=== PATIENT | male | born 1985 | race Caucasian/White ===

== ENCOUNTER 2019-06-12 19:17 | Inpatient (IN) ==
--- NOTE | 2019-06-12 21:35 | Emergency Department Note ---
Fever HPI - General Chief Complaint: Fever Stated Complaint: fever Time Seen by Provider: 06/12/19 19:27 Source: patient Mode of arrival: ambulatory Limitations: no limitations - History of Present Illness HPI Narrative: 34-year-old male presents with fever, tachycardia, and some generalized mild abdominal pain. States he has peritonitis. Has a peritoneal dialysis catheter for kidney failure and is supposed to get a kidney transplant soon. States he only has 1 kidney at this time. He is a Dr. Wick patient. Dr. Wick did call ahead. He has been getting vancomycin via his peritoneal dialysis and his last dose is tomorrow. States he was doing better until today when he started running a fever again. Also has some mild abdominal discomfort. States this is how it started originally and with any 8 hours he has been for. States he is noticed a fever on 3 occasions over the last 8 hours. Does have some nausea. No vomiting or diarrhea. Dr. Wick did call and give report to Dr. Donahue and passed on some lab orders as well as he would like us to get a CT of the abdomen and pelvis without contrast - Related Data Home Medications Medication Instructions Recorded Confirmed Allopurinol [Zyloprim] 300 mg PO DAILY 06/12/19 06/12/19 Cholecalciferol (Vitd3)/Vit K2 2,000 units PO DAILY 06/12/19 06/12/19 [Dosoquin Tablet] Lisinopril [Zestril] 20 mg PO DAILY 06/12/19 06/12/19 Magnesium Oxide [Mag-Oxide 400 mg PO DAILY 06/12/19 06/12/19 Magnesium] Simvastatin [Zocor] 10 mg PO HS 06/12/19 06/12/19 Allergies Allergy/AdvReac Type Severity Reaction Status Date / Time No Known Drug Allergies Allergy Unverified 06/12/19 19:22 Review of Systems All systems ED: reviewed and negative except as stated. Fever PMH - Past Medical History Medical history: Reports: renal disease, other (Recent peritonitis with vancomycin therapy) Surgical history ED: Reports: other (Peritoneal dialysis catheter) - Social History smoking status: Never smoker Alcohol use: Reports: None Drug use: Reports: none Physical Exam Limitations: no limitations General appearance: alert Head: atraumatic, normocephalic, normal inspection Eye: Present: normal appearance. Absent: conjunctival injection ENT: Present: mucous membranes moist Neck: Present: normal inspection, trachea midline. Absent: tenderness, lymphadenopathy Chest: Present: symmetric chest wall rise Respiratory: Present: normal lung sounds bilaterally. Absent: respiratory d istress, rales/crackles, wheezes, accessory muscle use Cardiovascular: Present: tachycardia, normal heart sounds Abdominal: Present: soft, normal bowel sounds, other (Peritoneal dialysis catheter in place and draining). Absent: distention, tenderness, guarding, rigidity, mass Extremities: Present: normal inspection. Absent: pedal edema Neurological: Present: alert, oriented X3 Psychiatric: Present: normal affect, normal mood Skin: Present: warm, dry, intact, other (Pale) Course Course Narrative: At 2150, care turned over to Dr. Donahue due to shift change. Dr. Donahue to assume care Vital Signs Temperature 98.5 F 06/12/19 19:18 Pulse Rate 125 H 06/12/19 19:18 Respiratory Rate 20 06/12/19 19:18 Blood Pressure 125/82 06/12/19 19:18 Pulse Oximetry (%) 98 06/12/19 19:18 Temperature 98.6 F 06/15/19 10:53 Pulse Rate 65 06/15/19 10:53 Respiratory Rate 16 06/15/19 10:53 Blood Pressure 121/81 06/15/19 10:53 Pulse Oximetry (%) 98 06/15/19 10:53 Fever - Lab Data Result diagrams: 06/15/19 05:53 06/15/19 05:53 Lab Results 06/12/19 06/12/19 06/12/19 Range/Units 20:46 20:46 20:46 WBC 3.8 L (4.50-11.00) K/mcL RBC 3.70 L (4.63-6.08) M/mcL Hgb 11.9 L (13.7-17.5) g/dL Hct 33.7 L (40.1-51.0) % MCV 91.1 (80.0-100.0) fL MCH 32.2 (26.0-34.0) pg MCHC 35.3 (31.0-36.0) g/dL RDW 12.8 (11.5-14.5) % Plt Count 179 (140-440) K/mcL MPV 10.6 H (7.4-10.4) fL Total Counted 100 Seg Neutrophils % 78 (38-78) % Band Neutrophils % Not Reportable Lymphocytes % 16 (15-49) % Monocytes % (Manual) 4 (1-12) % Eosinophils % (Manual) 2 (0-7) % Platelet Estimate Normal (NORMAL) RBC Morphology Normal (NORMAL) VBG Lactic Acid 0.9 (0.5-2.0) mmol/L Sodium 127 L (133-145) mmol/L Potassium 4.1 (3.3-5.1) mmol/L Chloride 90 L (96-108) mmol/L Carbon Dioxide 22 (22-30) mmol/L Anion Gap 15.0 (8-16) BUN 84 H (6-20) mg/dl Creatinine 5.3 H* (0.7-1.2) mg/dl GFR Calculation 13 Glucose 113 H (70-105) mg/dL Calcium 10.0 (8.6-10.4) mg/dl Total Bilirubin 0.2 (0.0-1.0) mg/dL AST 15 (0-37) U/l ALT 32 (0-40) U/l Alkaline Phosphatase 63 (39-117) U/L Total Protein 6.5 (5.9-8.4) gm/dL Albumin 3.9 (3.2-5.2) gm/dL Globulin 2.6 (2.2-3.7) gm/dL Albumin/Globulin Ratio 1.5 (1.0-2.3) Peritoneal Source Peritoneal Color Peritoneal Appearance Peritoneal RBC /cumm Periton Tot Cells Ct Periton Nuc Cells /cumm Periton Neutrophils % Periton Lymphocytes % Peritoneal Monocytes % Peritoneal Eosinophils % Peritoneal Basophils % Periton Mesothelial % Periton Macrophages % Peritoneal Plasma Cell Peritoneal Other Cells Peritoneal Diff Commnt 06/12/19 Range/Units 21:08 WBC (4.50-11.00) K/mcL RBC (4.63-6.08) M/mcL Hgb (13.7-17.5) g/dL Hct (40.1-51.0) % MCV (80.0-100.0) fL MCH (26.0-34.0) pg MCHC (31.0-36.0) g/dL RDW (11.5-14.5) % Plt Count (140-440) K/mcL MPV (7.4-10.4) fL Total Counted Seg Neutrophils % (38-78) % Band Neutrophils % Lymphocytes % (15-49) % Monocytes % (Manual) (1-12) % Eosinophils % (Manual) (0-7) % Platelet Estimate (NORMAL) RBC Morphology (NORMAL) VBG Lactic Acid (0.5-2.0) mmol/L Sodium (133-145) mmol/L Potassium (3.3-5.1) mmol/L Chloride (96-108) mmol/L Carbon Dioxide (22-30) mmol/L Anion Gap (8-16) BUN (6-20) mg/dl Creatinine (0.7-1.2) mg/dl GFR Calculation Glucose (70-105) mg/dL Calcium (8.6-10.4) mg/dl Total Bilirubin (0.0-1.0) mg/dL AST (0-37) U/l ALT (0-40) U/l Alkaline Phosphatase (39-117) U/L Total Protein (5.9-8.4) gm/dL Albumin (3.2-5.2) gm/dL Globulin (2.2-3.7) gm/dL Albumin/Globulin Ratio (1.0-2.3) Peritoneal Source Peritoneal Peritoneal Color Colorless Peritoneal Appearance Clear Peritoneal RBC < 62836 /cumm Periton Tot Cells Ct 100 Periton Nuc Cells 95 /cumm Periton Neutrophils 2 % Periton Lymphocytes 35 % Peritoneal Monocytes 42 % Peritoneal Eosinophils 4 % Peritoneal Basophils 2 % Periton Mesothelial 6 % Periton Macrophages 9 % Peritoneal Plasma Cell Not Reportable Peritoneal Other Cells Not Reportable Peritoneal Diff Commnt Not Reportable Disposition Pt seen by ONLINE COMMUNICATIONS MANAGER/PA only: No Clinical Impression: Hyponatremia Peritoneal dialysis-associated peritonitis Qualifiers: Encounter type: initial encounter Qualified Code(s): T85.71XA - Infection and inflammatory reaction due to peritoneal dialysis catheter, initial encounter Disposition: Xfer As Inpt ([facility]) Condition: Fair
[2019-06-12 22:06] LABS: Hematocrit 33.7 % (40.1-51.0); Hemoglobin 11.9 g/dL (13.7-17.5); Mean Cell Volume 91.1 fL (80.0-100.0); Mean Corpuscular HGB Conc 35.3 g/dL (31.0-36.0); Mean Platelet Volume 10.6 fL (7.4-10.4); Platelet Count 179 K/mcL (140-440); Red Cell Distribution Width 12.8 % (11.5-14.5); WBC 3.8 K/mcL (4.50-11.00)
[2019-06-12 22:25] LABS: ALT/SGPT 32 U/l (0-40); AST/SGOT 15 U/l (0-37); Albumin 3.9 gm/dL (3.2-5.2); Albumin/Globulin Ratio 1.5 (1.0-2.3); Alkaline Phosphatase 63 U/L (39-117); Bilirubin,Total 0.2 mg/dL (0.0-1.0); Blood Urea Nitrogen 84 mg/dl (6-20); Carbon Dioxide 22 mmol/L (22-30); Globulin 2.6 gm/dL (2.2-3.7); Glucose 113 mg/dL (70-105)
[2019-06-12 22:28] LABS: Chloride 90 mmol/L (96-108); Eosinophils % (Manual) 2 % (0-7); Glomerular Filtration Rate 13; Lymphocytes % 16 % (15-49); Monocytes % (Manual) 4 % (1-12); Platelet Estimate NORMAL (NORMAL); RBC Morphology NORMAL (NORMAL); Segmented Neutrophils % 78 % (38-78)
--- NOTE | 2019-06-12 22:45 | Emergency Department Note ---
General Adult HPI - General Chief complaint: Fever Stated complaint: fever Time Seen by Provider: 06/12/19 19:27 Source: patient Mode of arrival: ambulatory Limitations: no limitations - History of Present Illness HPI Narrative: See history and physical dictated by DEE DEE Paulino. Patient reports that he was, 11 days ago, admitted and treated for peritonitis. He was treated and has been getting vancomycin every 4 days, 2 g. Also ceftaz a dime 1 g every day. These have been placed into his peritoneal dialysis fluid. However, today he developed some fevers and chills around 4 PM. Also some abdominal discomfort. No other source of fever is noted. He has no runny nose, sore throat, dysuria, cough, rash. He has had a little nausea but on. No chest pain. 11 days and 4 days ago he had some diarrhea. 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 He began peritoneal dialysis in January 2019. - Related Data Home Medications Medication Instructions Recorded Confirmed Allopurinol [Zyloprim] 300 mg PO DAILY 06/12/19 06/12/19 Cholecalciferol (Vitd3)/Vit K2 2,000 units PO DAILY 06/12/19 06/12/19 [Dosoquin Tablet] Lisinopril [Zestril] 20 mg PO DAILY 06/12/19 06/12/19 Magnesium Oxide [Mag-Oxide 400 mg PO DAILY 06/12/19 06/12/19 Magnesium] Simvastatin [Zocor] 10 mg PO HS 06/12/19 06/12/19 Allergies Allergy/AdvReac Type Severity Reaction Status Date / Time No Known Drug Allergies Allergy Unverified 06/12/19 19:22 Past Medical History - Past Medical History PMF Narrative: Medical History (Last Updated 06/13/19 @ 07:17 by Sreekanth Donahue DO) Chronic renal failure, stage 5 (Chronic) 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) Peritoneal dialysis-associated peritonitis (Acute) Peritoneal dialysis status (Chronic) Past Surgical History (Last Updated 06/13/19 @ 07:20 by Sreekanth Donahue DO) Status post insertion of dialysis catheter (Acute) Medical history: Reports: renal disease, other (Recent peritonitis with vancomycin therapy) Surgical history ED: Reports: other (Peritoneal dialysis catheter) - Social History smoking status: Never smoker Alcohol use: Reports: None Drug use: Reports: none Physical Exam Limitations: no limitations General appearance: alert, in no apparent distress, nontoxic Head: atraumatic, normocephalic Eye: Present: EOMI ENT: Present: mucous membranes moist Neck: Present: trachea midline. Absent: lymphadenopathy, thyromegaly Chest: Present: symmetric chest wall rise Respiratory: Present: normal lung sounds bilaterally. Absent: respiratory distress, rales/crackles, wheezes Cardiovascular: Present: regular rate, normal rhythm. Absent: systolic murmur, diastolic murmur Abdominal: Present: soft, tenderness (mild subjective, diffuse.). Absent: distention, guarding, rebound, rigidity, organomegaly, mass Extremities: Absent: pedal edema, pretibial edema, calf tenderness Back: Absent: CVA tenderness (R), CVA tenderness (L), spinous process tenderness Neurological: Present: alert, oriented X3 Psychiatric: Present: normal affect, normal mood Skin: Present: warm (feels feverish.), dry Course Vital Signs Temperature 98.5 F 06/12/19 19:18 Pulse Rate 125 H 06/12/19 19:18 Respiratory Rate 20 06/12/19 19:18 Blood Pressure 125/82 06/12/19 19:18 Pulse Oximetry (%) 98 06/12/19 19:18 Temperature 98.5 F 06/13/19 04:01 Pulse Rate 72 06/13/19 04:01 Respiratory Rate 23 H 06/13/19 04:01 Blood Pressure 131/74 06/13/19 04:01 Pulse Oximetry (%) 98 06/13/19 04:01 Medical Decision Making - [facility] Narrative Medical decision making narrative: Fever and abdominal pain in a patient with a peritoneal catheter who is been treated with vancomycin and ceftaz edema for peritonitis. White count is normal to slightly low. He has a sodium of 127. Lactic acid is 0.9. BUN is 84 and creatinine 5.3. Because of fever has given acetaminophen. 11:00 PM - I spoke with Dr. Wick regarding this patient prior to his admission and CT scan, labs, multiple cultures, etc. were obtained. I again spoke with him and we discussed making sure that there were eosinophils sustained and counted, fungal culture and stain; begin fluconazole 200 mg and Cipro 400 mg IV. I spoke with Dr. Stokes, hospitalist, who kindly accepts this patient for general care medical inpatient care. - Lab Data Result diagrams: 06/13/19 05:33 06/13/19 05:33 Lab Results 06/12/19 06/12/19 06/12/19 Range/Units 20:46 20:46 20:46 WBC 3.8 L (4.50-11.00) K/mcL RBC 3.70 L (4.63-6.08) M/mcL Hgb 11.9 L (13.7-17.5) g/dL Hct 33.7 L (40.1-51.0) % MCV 91.1 (80.0-100.0) fL MCH 32.2 (26.0-34.0) pg MCHC 35.3 (31.0-36.0) g/dL RDW 12.8 (11.5-14.5) % Plt Count 179 (140-440) K/mcL MPV 10.6 H (7.4-10.4) fL Total Counted 100 Seg Neutrophils % 78 (38-78) % Band Neutrophils % Not Reportable Lymphocytes % 16 (15-49) % Monocytes % (Manual) 4 (1-12) % Eosinophils % (Manual) 2 (0-7) % Platelet Estimate Normal (NORMAL) RBC Morphology Normal (NORMAL) VBG Lactic Acid 0.9 (0.5-2.0) mmol/L Sodium 127 L (133-145) mmol/L Potassium 4.1 (3.3-5.1) mmol/L Chloride 90 L (96-108) mmol/L Carbon Dioxide 22 (22-30) mmol/L Anion Gap 15.0 (8-16) BUN 84 H (6-20) mg/dl Creatinine 5.3 H* (0.7-1.2) mg/dl GFR Calculation 13 Glucose 113 H (70-105) mg/dL Calcium 10.0 (8.6-10.4) mg/dl Total Bilirubin 0.2 (0.0-1.0) mg/dL AST 15 (0-37) U/l ALT 32 (0-40) U/l Alkaline Phosphatase 63 (39-117) U/L Total Protein 6.5 (5.9-8.4) gm/dL Albumin 3.9 (3.2-5.2) gm/dL Globulin 2.6 (2.2-3.7) gm/dL Albumin/Globulin Ratio 1.5 (1.0-2.3) Peritoneal Source Peritoneal Color Peritoneal Appearance Peritoneal RBC /cumm Periton Tot Cells Ct Periton Nuc Cells /cumm Periton Neutrophils % Periton Lymphocytes % Peritoneal Monocytes % Peritoneal Eosinophils % Peritoneal Basophils % Periton Mesothelial % Periton Macrophages % Peritoneal Plasma Cell Peritoneal Other Cells Peritoneal Diff Commnt 06/12/19 Range/Units 21:08 WBC (4.50-11.00) K/mcL RBC (4.63-6.08) M/mcL Hgb (13.7-17.5) g/dL Hct (40.1-51.0) % MCV (80.0-100.0) fL MCH (26.0-34.0) pg MCHC (31.0-36.0) g/dL RDW (11.5-14.5) % Plt Count (140-440) K/mcL MPV (7.4-10.4) fL Total Counted Seg Neutrophils % (38-78) % Band Neutrophils % Lymphocytes % (15-49) % Monocytes % (Manual) (1-12) % Eosinophils % (Manual) (0-7) % Platelet Estimate (NORMAL) RBC Morphology (NORMAL) VBG Lactic Acid (0.5-2.0) mmol/L Sodium (133-145) mmol/L Potassium (3.3-5.1) mmol/L Chloride (96-108) mmol/L Carbon Dioxide (22-30) mmol/L Anion Gap (8-16) BUN (6-20) mg/dl Creatinine (0.7-1.2) mg/dl GFR Calculation Glucose (70-105) mg/dL Calcium (8.6-10.4) mg/dl Total Bilirubin (0.0-1.0) mg/dL AST (0-37) U/l ALT (0-40) U/l Alkaline Phosphatase (39-117) U/L Total Protein (5.9-8.4) gm/dL Albumin (3.2-5.2) gm/dL Globulin (2.2-3.7) gm/dL Albumin/Globulin Ratio (1.0-2.3) Peritoneal Source Peritoneal Peritoneal Color Colorless Peritoneal Appearance Clear Peritoneal RBC < 76227 /cumm Periton Tot Cells Ct 100 Periton Nuc Cells 95 /cumm Periton Neutrophils 2 % Periton Lymphocytes 35 % Peritoneal Monocytes 42 % Peritoneal Eosinophils 4 % Peritoneal Basophils 2 % Periton Mesothelial 6 % Periton Macrophages 9 % Peritoneal Plasma Cell Not Reportable Peritoneal Other Cells Not Reportable Peritoneal Diff Commnt Not Reportable Disposition Pt seen by MDM DEVELOPER/PA only: No Clinical Impression: Hyponatremia Peritoneal dialysis-associated peritonitis Qualifiers: Encounter type: initial encounter Qualified Code(s): T85.71XA - Infection and inflammatory reaction due to peritoneal dialysis catheter, initial encounter Disposition: Xfer As Inpt ([facility]) Condition: Fair
[2019-06-12] MEDS ORDERED: ACETAMINOPHEN 325 MG TABLET PO ONE (22:55)
[2019-06-12 23:00] LABS: Basophils,Peritoneal Fluid 2 %; Eosinophils,Peritoneal Fluid 4 %; Macrophages,Peritoneal Fluid 9 %; Mesothelial,Peritoneal Fluid 6 %; Monocyte,Peritoneal Fluid 42 %; Neutrophils,Peritoneal Fluid 2 %; Nucleated Cel,Peritoneal Fluid 95 /cumm; RBC,Peritoneal Fluid < 50000 /cumm
[2019-06-12] MEDS ORDERED: FLUCONAZOLE 100 MG TABLET PO ONE ×2 (23:10→23:31)
[2019-06-12] MEDS ORDERED: CIPROFLOXACIN 400 MG/200 ML BAG IV ONE (23:11)
[2019-06-12] MEDS ORDERED: MELATONIN 3 MG TABLET PO PRN (23:54)
[2019-06-12] MEDS ORDERED: ACETAMINOPHEN 325 MG TABLET PO PRN (23:55)
[2019-06-13] MEDS ORDERED: fentaNYL 100 MCG/2 ML VIAL IV PRN (01:03)
[2019-06-13] MEDS ORDERED: ACETAMINOPHEN 1,000 MG/100 ML BOTTLE IV PRN (01:04)
[2019-06-13] MEDS ORDERED: ACETAMINOPHEN 500 MG TABLET PO PRN (01:04)
[2019-06-13] MEDS ORDERED: ONDANSETRON 4 MG ODT TABLET SL PRN (02:31)
[2019-06-13] MEDS ORDERED: ONDANSETRON 4 MG/2 ML VIAL IV PRN (02:31)
[2019-06-13] MEDS: 0.9 % SODIUM CHLORIDE 10 ML SYRINGE IV SCH ×3 (05:35→19:59)
[2019-06-13 06:00] LABS: Basophils # (Auto) 0 K/mcL (0.00-0.30); Basophils % (Auto) 0 % (0.0-2.0); Eosinophils # (Auto) 0.11 K/mcL (0.00-0.70); Granulocytes % (Auto) 56.3 % (38.0-78.0); Hematocrit 29.5 % (40.1-51.0); Hemoglobin 10.3 g/dL (13.7-17.5); Lymphocytes # (Auto) 0.45 K/mcL (1.50-4.80); Lymphocytes % (Auto) 20.5 % (15.5-49.0); Mean Cell Volume 90.2 fL (80.0-100.0); Mean Corpuscular HGB Conc 34.9 g/dL (31.0-36.0); Mean Platelet Volume 10.6 fL (7.4-10.4); Monocytes % (Auto) 18.2 % (1.0-12.0); Platelet Count 138 K/mcL (140-440); RBC 3.27 M/mcL (4.63-6.08); Red Cell Distribution Width 12.5 % (11.5-14.5); WBC 2.2 K/mcL (4.50-11.00)
--- NOTE | 2019-06-13 06:13 | Cat Scan Report ---
CLINICAL INFORMATION: History of peritoneal dialysis. Pain and fever. COMPARISON: None. TECHNIQUE: Axial images were obtained through the abdomen and pelvis. Sagittally and coronally reformatted images. FINDINGS: Examination was initially interpreted by [facility] Lung bases:Negative. No parenchymal infiltrate or mass. No pleural fluid or pericardial fluid. Liver:Negative to the limits of noncontrast enhanced examination. No detectable mass. Liver contour is smooth. Gallbladder, billary:Gallbladder is not distended. No calcified gallstones. No dilated bile ducts Spleen:Mild splenomegaly. Spleen measures 13 x 8 x 13 cm. Pancreas:Negative. No pancreatic mass. No peripancreatic abnormality Adrenal glands:Negative Kidneys, ureters, bladder:Markedly atrophic left kidney. Right kidney is small and measures 8 cm in craniocaudal dimension. There is no hydronephrosis. Tiny nonobstructing left midpole stone. No hydronephrosis. There is no hydroureter. No ureteral calculus. No bladder stone. There is urine within the urinary bladder. Gastrointestinal:Negative colon. No diverticulitis. No detectable colonic mass. Appendix is not well-visualized but there are no secondary signs of appendicitis. Small bowel is negative. No mechanical small bowel obstruction. The stomach is moderately distended and fluid-filled Vascular:No atherosclerotic calcification. No abdominal aortic aneurysm Lymphatic:No retroperitoneal or mesenteric adenopathy Mesentery, peritoneum:There is a peritoneal dialysis catheter coiled in the pelvis. There is a small amount of intraperitoneal fluid. There are intraperitoneal gas bubbles in the right upper quadrant. No mesenteric mass. No intra-abdominal abscess. Reproductive:Prostate is not enlarged. Musculoskeletal:No lumbar compression fractures. There is degenerative disc disease at L4-5 and L5-S1. Sacrum and pelvis are negative. There is avascular necrosis in the right femoral head. Left femoral head is negative. IMPRESSION: 1. Avascular necrosis of the right femoral head 2. Peritoneal dialysis catheter within the pelvis. There is a small amount of free intraperitoneal fluid and there are several intraperitoneal gas bubbles. No intra-abdominal abscess 3. Mild splenomegaly 4. Somewhat distended fluid-filled stomach The exam was performed using radiation dose optimization techniques including, but not limited to, automated exposure control, adjustment of the mA and/or kV according to patient size and use of iterative reconstruction technique. Interpreted and Authenticated by: Benson Arceo 06/13/19
[2019-06-13 06:42] LABS: ALT/SGPT 26 U/l (0-40); AST/SGOT 12 U/l (0-37); Albumin 3.3 gm/dL (3.2-5.2); Albumin/Globulin Ratio 1.4 (1.0-2.3); Alkaline Phosphatase 52 U/L (39-117); Bilirubin,Direct < 0.2 mg/dL (0.0-0.3); Bilirubin,Total 0.2 mg/dL (0.0-1.0); Blood Urea Nitrogen 83 mg/dl (6-20); Carbon Dioxide 20 mmol/L (22-30); Globulin 2.3 gm/dL (2.2-3.7); Glucose 96 mg/dL (70-105); Lactate Dehydrogenase 154 U/L (94-250); Phosphorous 5.4 mg/dL (2.7-4.5); Triglycerides 115 mg/dl (<150); Uric Acid 4.2 mg/dL (2.5-8.0)
[2019-06-13 06:47] LABS: Chloride 93 mmol/L (96-108); Glomerular Filtration Rate 13
--- NOTE | 2019-06-13 07:41 | Internal Med History&Physical ---
Medical - H&P: [facility] Patient information: Note initiated : 06/13/19 at 23:40 pm Service Date, if different from initiated Date: [] Patient: Jazmine Martinez a 34 y/o M admitted on 06/13/19 for fever. Chief Complaint: [] Chief complaint: Abdominal tenderness/fever History of present illness: Mr. Martinez is a 34 year old M with a known history of ESRD on peritoneal dialysis managed by Dr. Wick nephrology. Patient was recently diagnosed with dialysis related peritonitis and was started on vancomycin/ceftazidime. Over the course of few days patient's failed to improve and continued to spike fevers along with associated increasing abdominal pain. He was referred to the ER for further evaluation by nephrology.. Initial work-up included peritoneal and blood cultures. Patient was started on empiric antibiotic coverage as per nephrology including Diflucan/ciprofloxacin. Hospital service was consulted for admission. At the time evaluation patient is alert and oriented. He complains of minimal abdominal discomfort and endorses history as above. He denies headache photophobia, shaking chills, rash. 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) Peritoneal dialysis-associated peritonitis (Acute) Peritoneal dialysis status (Chronic) Surgical history: Status post insertion of dialysis catheter (Acute) Smoking status: Never smoker Medical - H&P: Meds Home Medications Medication Instructions Recorded Confirmed Type Allopurinol [Zyloprim] 300 mg PO DAILY 06/12/19 06/12/19 History Cholecalciferol (Vitd3)/Vit K2 2,000 units PO DAILY 06/12/19 06/12/19 History [Dosoquin Tablet] Lisinopril [Zestril] 20 mg PO DAILY 06/12/19 06/12/19 History Magnesium Oxide [Mag-Oxide 400 mg PO DAILY 06/12/19 06/12/19 History Magnesium] Simvastatin [Zocor] 10 mg PO HS 06/12/19 06/12/19 History Allergies Allergy/AdvReac Type Severity Reaction Status Date / Time No Known Drug Allergies Allergy Unverified 06/12/19 19:22 Medical - H&P: Exam - Constitutional Vitals: Temp Pulse Resp BP Pulse Ox 98.5 F 72 23 H 131/74 98 06/13/19 04:01 06/13/19 04:01 06/13/19 04:01 06/13/19 04:01 06/13/19 04:01 General appearance: no acute distress Exam: Alert and responding to commands Nonlabored breathing Head normocephalic Oral cavity dry No ear nose discharge Neck lymphadenopathy S1-S2 regular rhythm ESM grade 1 Diminished breath sounds bases Abdomen soft nontender, PD catheter Lower extremity no cyanosis clubbing no joint swelling Minimal lymphedema Skin no suspicious lesion Psych alert cooperative Neuro nonfocal Medical - H&P: Reslt - Labs CBC & Chem 7: 06/13/19 05:33 06/13/19 05:33 Labs: Short CBC 06/12/19 06/13/19 Range/Units 20:46 05:33 WBC 3.8 L 2.2 L (4.50-11.00) K/mcL Hgb 11.9 L 10.3 L (13.7-17.5) g/dL Hct 33.7 L 29.5 L (40.1-51.0) % Plt Count 179 138 L (140-440) K/mcL BMP 06/12/19 06/13/19 20:46 05:33 Sodium 127 L 128 L Potassium 4.1 4.5 Chloride 90 L 93 L Carbon Dioxide 22 20 L BUN 84 H 83 H Creatinine 5.3 H* 5.4 H* Glucose 113 H 96 Calcium 10.0 9.0 Liver Function 06/12/19 06/13/19 Range/Units 20:46 05:33 Total Bilirubin 0.2 0.2 (0.0-1.0) mg/dL Direct Bilirubin < 0.2 (0.0-0.3) mg/dL GGT 15 (8-61) U/L AST 15 12 (0-37) U/l ALT 32 26 (0-40) U/l Alkaline Phosphatase 63 52 (39-117) U/L Albumin 3.9 3.3 (3.2-5.2) gm/dL Medical - H&P: A/P (1) Peritoneal dialysis-associated peritonitis Current visit: Yes Status: Acute * Suspected peritoneal dialysis related peritonitis-continue antibiotics as per nephrology. On ciprofloxacin/vancomycin/Diflucan. ID consult. Inpatient admission * ESRD management per nephrology * Hyperlipidemia continue statin * History of hypertension continue BERNIE inhibitor * History of gout continue allopurinol * Full code * Prophylaxis heparin Plan * Inpatient admission * Antibiotic coverage per nephrology * ID and nephrology consult * Prior medical condition management as above * Nutrition support
--- NOTE | 2019-06-13 11:00 | Consultation ---
DATE OF CONSULTATION: 06/13/2019 REFERRING PHYSICIAN: Sunday Gleason MD REASON FOR CONSULTATION: Peritonitis. HISTORY OF PRESENT ILLNESS: The patient is a 34-year-old male with history of C1Q nephropathy. He had kidney disease for a long time and in January 2019 started on peritoneal dialysis. Initially, he did cycler assisted dialysis with dextrose, but had drain pain, so we decided to switch him to an Extraneal. He started Extraneal about 3 weeks ago. About 2 weeks ago, he developed abdominal pain for which he went to [facility]. He stayed in the hospital for a day. He was given vancomycin IP and ceftazidime IP as well, and patient did his peritoneal dialysis. Due to admission, he did have elevated white counts in the PD fluid. Upon discharge, the culture came back positive as a group A strep. He was continued on vancomycin for a total of 14 days. Roughly, around the 10th day or so he started having abdominal pain and fever and fluid was cloudy again. He had a repeat cell count. That showed elevated white count in the PD fluid. For that reason, ceftazidime was reinstated. Subsequently, he called yesterday with fever and abdominal discomfort. For that reason, he was asked to come to the hospital. In the emergency room he had a repeat cell count which showed only [address] of the abdomen without any contrast and did not show any evidence of collections. He is hospitalized for further evaluation. PAST MEDICAL HISTORY: Significant for: 1. End-stage renal disease on peritoneal dialysis. He is scheduled to have his kidney transplant next month. 2. History of gout. 3. Hypertension. 4. Hyperlipidemia. 5. Immunocomplex mediated C1Q glomerulopathy. 6. Peritoneal dialysis peritonitis recently. PAST SURGICAL HISTORY: Status post dialysis catheter placement. CURRENT AT-HOME MEDICATIONS: 1. Allopurinol 300 mg daily. 2. Vitamin D3 2000 units once daily. 3. Lisinopril 20 mg daily. 4. Magnesium oxide 400 mg daily. 5. Simvastatin 10 mg at night. ALLERGIES: No known drug allergies. FAMILY HISTORY: His daughter had also had a kidney transplant. 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 He denies any history of alcohol, smoking or drug use. REVIEW OF SYSTEMS: Ten systems were reviewed and as indicated in the HPI. PHYSICAL EXAMINATION: GENERAL: The patient is alert, oriented x3, in no apparent distress. VITAL SIGNS: Blood pressures have been 120 to 130 systolic with diastolic in the 70s. Pulse rates have been in the 70s, temperature 98.5. He did have one at 101 overnight. O2 sat was 98%. HEENT: NC/AT. Pupils are reactive to light. External auditory canal appears normal. Oral cavity shows normal mucosa. NECK: Supple. No jugular venous distention or lymphadenopathy or thyromegaly. LUNGS: Decreased air entry bilaterally. No rales or rhonchi. CARDIAC: Normal S1 and S2. No S3 or S4. He has a 2/6 systolic murmur. ABDOMEN: Soft, nontender. No organomegaly. Positive bowel sounds. No mass. No rebound. EXTREMITIES: Did not show any evidence of edema. Palpable dorsalis pedis and posterior tibials. No skin rash or joint swellings noted. NEUROLOGIC: Grossly intact. LABORATORY DATA: White count is 2.2 with hemoglobin of 10.3 and a platelet count of 138. Sodium 128, potassium 4.5, chloride of 93, CO2 20, BUN 83, creatinine 5.4, magnesium 1.4. PD cell count showed 95 nucleated cells with 35% polys, 42% monocytes, 4 eosinophils. ASSESSMENT AND PLAN: 1. Peritonitis. The patient had group A strep peritonitis with elevated white count in the pd fluid, and was treated with vancomycin and ceftazidime initially and he had a recurrence of fever, so he was brought into the emergency room. The cell count in the PD fluid has improved. It is possible that his symptoms are mostly related to the antibiotics. A fungal infection is also a possibility, although the cell count is getting better. Infectious Disease has been consulted and has recommended to hold off any further antibiotics. Cultures have been sent. An echocardiogram will be obtained. 2. Hypertension. Blood pressures are adequately controlled. 3. I will obtain a UA and a chest x-ray as well. JONAS:steffanie Job ID: [id number] Doc ID: [id number] Omar MARTINEZ
--- NOTE | 2019-06-13 11:08 | Internal Med Progress Note ---
Medical - PN: Subj Patient information: Note initiated : 06/13/19 at 11:05 am Service Date, if different from initiated Date: [] Patient: Jazmine Martinez a 34 y/o M admitted on 06/13/19 for fever. Chief Complaint: [] Interval history: Mr. Martinez is a 34 year old M with a known history of ESRD on peritoneal dialysis managed by Dr. Wick nephrology. Patient was recently diagnosed with dialysis related peritonitis and was started on vancomycin/ceftazidime. Over the course of few days patient's failed to improve and continued to spike fevers along with associated increasing abdominal pain. He was referred to the ER for further evaluation by nephrology.. Initial work-up included peritoneal and blood cultures. Patient was started on empiric antibiotic coverage as per nephrology including Diflucan/ciprofloxacin. Hospital service was consulted for admission. At the time evaluation patient is alert and oriented. He complains of minimal abdominal discomfort and endorses history as above. He denies headache photophobia, shaking chills, rash. 06/13-patient doing well. No overnight events. No abdominal tenderness pain, ID recommends discontinue antibiotics. Case discussed with nephrology. ID also recommends lumbar puncture if fever spike greater than 38.2 centigrade. Cultures negative so far. Peritoneal fluid white count 95 with 2% neutrophils indicating complete resolution of peritonitis. Ongoing peritoneal dialysis per nephrology. - Constitutional Vitals: Vital Signs Temp Pulse Resp BP Pulse Ox 100 F H 88 16 120/78 97 06/13/19 08:01 06/13/19 08:01 06/13/19 08:01 06/13/19 08:01 06/13/19 08:01 Period Temp Pulse Resp BP Sys/Melgoza Pulse Ox Last 24 Hr 98.5 F-101 F 72-125 16-23 111-132/66-87 96-100 Intake and Output 06/12/19 06/13/19 06/13/19 21:59 05:59 13:59 Intake Total 97 240 Output Total 1450 Balance 97 -1210 Weight 185 lb 181 lb 1.6 oz Intake & Output: Intake & Output 06/12/19 06/13/19 06/13/19 21:59 05:59 13:59 Intake Total 97 240 Output Total 1450 Balance 97 -1210 Weight 185 lb 181 lb 1.6 oz Intake: IV 97 Oral 240 Output: Void Amount 1450 Other: Meal Breakfast Percent of Meal Consumed 100% General appearance: no acute distress Exam: Alert oriented Nonlabored breathing No anxiety Nontender abdomen Medical - PN: Obj Da - Labs CBC & Chem 7: 06/13/19 05:33 06/13/19 05:33 Labs: Abnormal Lab Results 06/13/19 06/13/19 06/12/19 05:33 05:33 20:46 WBC 2.2 L RBC 3.27 L Hgb 10.3 L Hct 29.5 L Plt Count 138 L MPV 10.6 H [place] % (Auto) 18.2 H Gran # 1.24 L Lymph # (Auto) 0.45 L Sodium 128 L 127 L Chloride 93 L 90 L Carbon Dioxide 20 L BUN 83 H 84 H Creatinine 5.4 H* 5.3 H* Glucose 113 H Phosphorus 5.4 H Magnesium 1.4 L Total Protein 5.6 L 06/12/19 20:46 WBC 3.8 L RBC 3.70 L Hgb 11.9 L Hct 33.7 L Plt Count MPV 10.6 H [place] % (Auto) Gran # Lymph # (Auto) Sodium Chloride Carbon Dioxide BUN Creatinine Glucose Phosphorus Magnesium Total Protein Meds: Medications Acetaminophen (Tylenol) 1,000 mg PO Q6HP PRN; Protocol PRN Reason: Per Pain Protocol/Fever > 101 Last Admin: 06/13/19 06:44 Dose: 1,000 mg Documented by: Fentanyl (Sublimaze) 12.5 mcg IV Q2HP PRN; Protocol PRN Reason: Per Pain Protocol Acetaminophen (Ofirmev) 1,000 mg in 100 mls @ 200 mls/hr IV Q6HP PRN; Protocol PRN Reason: PAIN/FEVER > 101 Melatonin (Melatonin 3mg Tablet) 3 mg PO ONCE PRN PRN Reason: Insomnia Ondansetron HCl (Zofran Odt) 4 mg SL Q4-6HP PRN PRN Reason: Nausea Ondansetron HCl (Zofran) 4 mg IV Q4-6HP PRN PRN Reason: Nausea And Vomiting Sodium Chloride (Saline Flush) 10 ml IV Q8 [facility] Last Admin: 06/13/19 05:35 Dose: 10 ml Documented by: Medical - PN: A/P - Time Spent With Patient Total time spent is greater than 50% in coordination of care (as documented) at patient's floor/unit and/or counseling patient: 25 - 35 minutes (1) Peritoneal dialysis-associated peritonitis Status: Acute Assessment and plan: * Fever of unclear origin-pancultures/ID on board. Antibiotics discontinued. LP if fever greater than 38.2 centigrade(high risk Neisseria infection) * Recent peritoneal dialysis related peritonitis-clinically resolved status post 2 weeks antibiotic coverage. Repeat peritoneal fluid count 95 with 2% neutrophils * ESRD management per nephrology-on peritoneal dialysis * Hyperlipidemia continue statin * History of hypertension continue BERNIE inhibitor * History of gout continue allopurinol * Full code * Prophylaxis heparin Plan * Continue PD per nephrology * DC antibiotics * If fever spike greater than 38.2 lumbar puncture per ID * Continue prior medical condition management as above * Nutrition support Current Visit: Yes
[2019-06-13 11:21] LABS: Appearance,Urine CLEAR; Bacteria,Urine 0 /hpf (0); Bilirubin,Urine NEG (NEG); Color,Urine STRAW; Culture Indicated,Urine NO; Glucose,Urine (UA) 50 mg/dL (NEG); Ketones,Urine NEG (NEG); Leukocyte Esterase,Urine NEG /uL (NEG); Nitrate,Urine NEG (NEG); Protein,Urine 100 mg/dL (NEG); Specific Gravity,Urine 1.016 (1.000-1.035); Urine Blood 0.03 mg/dL (<0.03); Urine RBC 0 /hpf (0-1); Urine Squamous Epithelial Cell 0 /hpf (0-4); Urine WBC < 1 /hpf (0-4); Urobilinogen,Urine NEG (NEG)
--- NOTE | 2019-06-13 19:44 | Infectious Disease Consult ---
History of Present Illness Patient information: Note initiated : 06/13/19 at 7:08 pm Service Date, if different from initiated Date: [] Patient: Jazmine Martinez 34 y/o M admitted on 06/13/19 for fever. Chief Complaint: [] Consult date: 06/13/19 Requesting Physician: Sunday Gleason Reason for Consult: see above Chief complaint: fever History of present illness: 34 year old man with PMHx of C1q nephropathy, progressing to ESRD, now on PD since last January, was admitted to [facility] after spiking a fever of 101F on 11/01 and 06/12/19. He was admitted to [facility] in [place] on 05/29 with c/o belly pain, [place] [address] with 95% PMNs, Cx growing Streptococcus species. Pt was prescribed intraperitoneal vancomycin every 4 days and daily intraperitoneal ceftazidime. While Ceftazidime was stopped after few days, he finished intraperitoneal Vanc on 06/12. He felt much better in interim but spiked a fever on 06/09/19. He started doing intraperitoneal Ceftazidime per Dr Wick until 06/12/19. Pt denies any other symptoms. Is not on any steroids, or immunosuppression. Pt was afebrile at admission, normal VS. Received a dose of IV Cipro and IV Fluconazole per ED, blood Cx sent. CT abd/pelvis done was unremarkable for any focus of infection, confirmed pelvic position of catheter with no intra-abd ab scess. Pt denied any past Hx of PD cath infections. Review of Systems All systems PM: reviewed and no additional remarkable complaints except as stated Constitutional: as per HPI Past History Past social history: lives in [place] with his and children Medications and Allergies Home Medications Medication Instructions Recorded Confirmed Type Allopurinol [Zyloprim] 300 mg PO DAILY 06/12/19 06/12/19 History Cholecalciferol (Vitd3)/Vit K2 2,000 units PO DAILY 06/12/19 06/12/19 History [Dosoquin Tablet] Lisinopril [Zestril] 20 mg PO DAILY 06/12/19 06/12/19 History Magnesium Oxide [Mag-Oxide 400 mg PO DAILY 06/12/19 06/12/19 History Magnesium] Simvastatin [Zocor] 10 mg PO HS 06/12/19 06/12/19 History Allergies Allergy/AdvReac Type Severity Reaction Status Date / Time No Known Drug Allergies Allergy Unverified 06/12/19 19:22 Physical Examination Vital signs: Temp Pulse Resp BP Pulse Ox 37.4 C H 76 16 134/78 100 06/13/19 16:01 06/13/19 10:01 06/13/19 16:11 06/13/19 16:01 06/13/19 16:01 General appearance: no acute distress Eyes pulmonary: nonicteric, other (pupils reactive to light b/l) ENT: oropharynx moist, other (no thrush, dentition ok) Neck: supple, other (no neck stiffness) Effort: normal Auscultation: bilateral: clear Cardiovascular: regular rate and rhythm, murmur noted (systolic, mainly heard over 2nd intercostal space) Gastrointestinal: normoactive bowel sounds, soft, non-tender, non-distended, other (the PD cath site looks normal, no drainage, no redness, non tender. ) Integumentary: normal Extremities: no cyanosis, no edema, pink and warm, pulses normal Musculoskeletal: other (no point tenderness over spine) Results - Laboratory Findings CBC and BMP: 06/14/19 08:30 06/14/19 05:10 Abnormal lab findings: Abnormal Labs 06/12/19 06/12/19 06/13/19 20:46 20:46 05:33 WBC 3.8 L 2.2 L RBC 3.70 L 3.27 L Hgb 11.9 L 10.3 L Hct 33.7 L 29.5 L Plt Count 138 L MPV 10.6 H 10.6 H [place] % (Auto) 18.2 H Gran # 1.24 L Lymph # (Auto) 0.45 L Sodium 127 L Chloride 90 L Carbon Dioxide BUN 84 H Creatinine 5.3 H* Glucose 113 H Phosphorus Magnesium Total Protein Urine Protein Urine Glucose (UA) Urine Occult Blood 06/13/19 06/13/19 05:33 10:40 WBC RBC Hgb Hct Plt Count MPV [place] % (Auto) Gran # Lymph # (Auto) Sodium 128 L Chloride 93 L Carbon Dioxide 20 L BUN 83 H Creatinine 5.4 H* Glucose Phosphorus 5.4 H Magnesium 1.4 L Total Protein 5.6 L Urine Protein 100 A Urine Glucose (UA) 50 A Urine Occult Blood 0.03 A Microbiology: Microbiology 06/12/19 21:25 Peritoneal Dialysis Fluid Gram Stain - Final 06/12/19 21:25 Peritoneal Dialysis Fluid Body Fluid Culture - Preliminary 06/13/19 00:25 Nose MRSA (PCR) - Final Assessment and Plan - Narrative A/P Narrative: A: 1. Fever: 2 isolated episodes (yesterday night and on 06/09/19), afebrile at time of visit - s/p a dose of IV Cipro and Fluconazole in ED - no focal signs or symptoms to suggest infection - Blood Cx from 06/12 NGTD. Peritoneal fluid gram stain neg, Cx NGTD. UA with neg nitrites and neg esterase - MRSA nasal screen neg - CT abd/pelvis 06/12/2019 with normal lying PD cath, normal PD exit tract. Also showed Avascular necrosis of the right femoral head, a small amount of free intraperitoneal fluid and there are several intraperitoneal gas bubbles. No intra-abdominal abscess, mild splenomegaly 2. Resolved Streptococcal CAPD peritonitis: no clinical symptoms or signs of peritonitis. Previous clinical features resolved - Peritoneal WBC at initial presentation on 05/29 was [id number] with 95% PMNs intraperitoneal Vanc every [address] Wick x 2 weeks -------------> WBC yesterday at 95 with 2% PMNs - CT abd/pelvis with no concerns for residual PD infection 3. 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 Deficiency has been linked to developement of Autoimmune ds such as RA, SLE, and deposition of immune complexes in various parts of body leading to inflammatory response. No specific infectious diseases have been linked with C1q deficiency. Recommendations: -TTE as pt has a new systolic murmur - As pt has no signs and symptoms of infection, is currently afebrile, past 2 epsidoes were isolated and by 3 days; he could be watched off antibiotics unless he spikes fever again. Infection would lead to persistent fevers. - Would recommend stopping any scheduled Tylenol. - In case he spikes a fever again (>38.1C): start IV Cefepime 2 gm q48 hrs. If there is hypotension, IV vanc (loading dose of 1 gm IV with pharmacy assisted monitoring) can also be added. LP with CSF analysis for cell count with differential, Glu, protein, opening pressure, gram stain & Culture/sensitivity. will follow Jose Romano MD Infectious diseases
[2019-06-13] MEDS ORDERED: MAGNESIUM SULFATE 2 GM/50 ML BAG IV ONE ×2 (20:17→20:42)
[2019-06-13] MEDS ORDERED: FLUCONAZOLE 100 MG TABLET PO ONE (23:10)
[2019-06-14] MEDS: 0.9 % SODIUM CHLORIDE 10 ML SYRINGE IV SCH ×3 (05:47→21:13)
[2019-06-14 06:29] LABS: Bilirubin,Direct < 0.2 mg/dL (0.0-0.3); Bilirubin,Total < 0.2 mg/dL (0.0-1.0); Chloride 98 mmol/L (96-108)
[2019-06-14 06:31] LABS: ALT/SGPT 20 U/l (0-40); AST/SGOT 15 U/l (0-37); Albumin/Globulin Ratio 1.3 (1.0-2.3); Alkaline Phosphatase 47 U/L (39-117); Blood Urea Nitrogen 73 mg/dl (6-20); Calcium 8.8 mg/dl (8.6-10.4); Carbon Dioxide 19 mmol/L (22-30); Globulin 2.4 gm/dL (2.2-3.7); Glomerular Filtration Rate 14; Glucose 117 mg/dL (70-105); Lactate Dehydrogenase 203 U/L (94-250); Phosphorous 5.1 mg/dL (2.7-4.5); Triglycerides 129 mg/dl (<150)
[2019-06-14 06:33] LABS: Basophils # (Auto) 0.02 K/mcL (0.00-0.30); Eosinophils # (Auto) 0.15 K/mcL (0.00-0.70); Eosinophils % (Auto) 7.4 % (0.0-7.0); Hematocrit 30.1 % (40.1-51.0); Hemoglobin 10.2 g/dL (13.7-17.5); Lymphocytes # (Auto) 0.86 K/mcL (1.50-4.80); Lymphocytes % (Auto) 42.4 % (15.5-49.0); Mean Corpuscular HGB Conc 33.9 g/dL (31.0-36.0); Mean Platelet Volume 10.4 fL (7.4-10.4); Monocytes # (Auto) 0.43 K/mcL (0.10-0.90); Monocytes % (Auto) 21.2 % (1.0-12.0); Platelet Count 160 K/mcL (140-440); RBC 3.17 M/mcL (4.63-6.08); Red Cell Distribution Width 12.8 % (11.5-14.5)
--- NOTE | 2019-06-14 07:54 | XRay Report ---
CLINICAL INFORMATION:Fever TECHNIQUE: PA and lateral upright chest x-ray COMPARISON: None FINDINGS:No focal pulmonary parenchymal infiltrate or mass. Lungs are negative. Heart size and vascularity are normal. Hanna and mediastinum are negative. There is no pleural fluid. IMPRESSION: Negative PA and lateral chest Interpreted and Authenticated by: Benson Arceo 06/14/19
[2019-06-14] MEDS: MAGNESIUM OXIDE 400 MG TABLET PO SCH (09:00)
[2019-06-14 09:12] LABS: Hematocrit 29.4 % (40.1-51.0); Hemoglobin 10.2 g/dL (13.7-17.5); Mean Corpuscular HGB Conc 34.7 g/dL (31.0-36.0); Mean Platelet Volume 10.2 fL (7.4-10.4); Platelet Count 138 K/mcL (140-440); RBC 3.23 M/mcL (4.63-6.08); Red Cell Distribution Width 12.5 % (11.5-14.5); WBC 2.2 K/mcL (4.50-11.00)
--- NOTE | 2019-06-14 09:47 | Nephrology Progress Note ---
Subjective Patient information: Note initiated : 06/14/19 at 9:45 am Service Date, if different from initiated Date: [] Patient: Jazmine Martinez 34 y/o M admitted on 06/13/19 for fever. Chief Complaint: [] He feels light headed at times and gets tachycardic. Objective - Vital Signs Vital signs: Vital Signs Temp Pulse Resp BP Pulse Ox 06/14/19 08:17 98.1 F 131/76 06/14/19 08:08 98.1 F 18 131/76 99 06/14/19 05:15 98.1 F 18 125/73 98 06/14/19 02:00 18 95 06/14/19 00:06 123/74 06/14/19 00:00 99.4 F H 90 18 123/74 95 06/13/19 20:26 98.4 F 137/83 06/13/19 19:04 98.4 F 89 18 137/83 100 06/13/19 16:11 16 06/13/19 16:01 99.3 F H 134/78 100 06/13/19 15:14 127/77 06/13/19 14:01 24 H 127/77 06/13/19 12:11 99 F 21 119/77 100 06/13/19 11:10 117/74 06/13/19 10:01 76 17 124/68 98 Intake and Output 06/13/19 06/14/19 06/14/19 21:59 05:59 13:59 Intake Total 660 Output Total 1300 775 Balance -640 -775 Intake: Oral 660 Output: Void Amount 1300 775 Other: Meal Lunch Percent of Meal Consumed 100% Urine Appearance Clear Clear Urine Color Pale Bright Yellow Bright Yellow Urine Odor Normal Normal Weight 180 lb 9.6 oz Intake & Output: Intake & Output 06/13/19 06/14/19 06/14/19 21:59 05:59 13:59 Intake Total 660 Output Total 1300 775 Balance -640 -775 Weight 180 lb 9.6 oz Intake: Oral 660 Output: Void Amount 1300 775 Other: Meal Lunch Percent of Meal Consumed 100% Urine Appearance Clear Clear Urine Color Pale Bright Yellow Bright Yellow Urine Odor Normal Normal - General Appearance General appearance: well-developed, well-nourished EENT: ATNC Neck: no JVD Respiratory: no kyphosis Cardiology: no murmurs Gastrointestinal: normoactive bowel sounds Integumentary: no rash Neurologic: no focal deficit Musculoskeletal: no deformities - Lab 06/14/19 08:30 06/14/19 05:10 Most recent lab results Calcium 8.8 mg/dl (8.6-10.4) 06/14/19 05:10 Phosphorus 5.1 mg/dL (2.7-4.5) H 06/14/19 05:10 Magnesium 2.2 mg/dL (1.6-2.5) 06/14/19 05:10 Assessment and Plan (1) Peritoneal dialysis-associated peritonitis Status: Acute Comment: Presented with peritonitis. His repeat cell count is pending. All antibiotics on hold. ID is seeing him. Leukopenia. Being worked up. ESRD will have him do PD tonight. Qualifiers: Encounter type: initial encounter Qualified Code(s): T85.71XA - Infection and inflammatory reaction due to peritoneal dialysis catheter, initial encounter
[2019-06-14 09:48] LABS: Band Neutrophils % 2 % (0-10); Eosinophils % (Manual) 3 % (0-7); Lymphocytes % 51 % (15-49); Monocytes % (Manual) 18 % (1-12); Platelet Estimate NORMAL (NORMAL); RBC Morphology NORMAL (NORMAL); Segmented Neutrophils % 26 % (38-78)
--- NOTE | 2019-06-14 09:48 | Internal Med Progress Note ---
Medical - PN: Subj Patient information: Note initiated : 06/14/19 at 9:46 am Service Date, if different from initiated Date: [] Patient: Jazmine Martinez a 34 y/o M admitted on 06/13/19 for fever. Chief Complaint: [] Interval history: Mr. Martinez is a 34 year old M with a known history of ESRD on peritoneal dialysis managed by Dr. Wick nephrology. Patient was recently diagnosed with dialysis related peritonitis and was started on vancomycin/ceftazidime. Over the course of few days patient's failed to improve and continued to spike fevers along with associated increasing abdominal pain. He was referred to the ER for further evaluation by nephrology.. Initial work-up included peritoneal and blood cultures. Patient was started on empiric antibiotic coverage as per nephrology including Diflucan/ciprofloxacin. Hospital service was consulted for admission. At the time evaluation patient is alert and oriented. He complains of minimal abdominal discomfort and endorses history as above. He denies headache photophobia, shaking chills, rash. 06/13-patient doing well. No overnight events. No abdominal tenderness pain, ID recommends discontinue antibiotics. Case discussed with nephrology. ID also recommends lumbar puncture if fever spike greater than 38.2 centigrade. Cultures negative so far. Peritoneal fluid white count 95 with 2% neutrophils indicating complete resolution of peritonitis. Ongoing peritoneal dialysis per nephrology. 06/14-no overnight fever. ANC 560. Work-up ongoing as per ID. Echocardiogram completed await results. Nephrology on board. Ongoing peritoneal dialysis. P atient tachycardic while ambulating to 120. No other concerns per staff. Will likely discharge in 24 hours if no further fever spikes. - Constitutional Vitals: Vital Signs Temp Pulse Resp BP Pulse Ox 98.1 F 90 18 131/76 99 06/14/19 08:17 06/14/19 00:00 06/14/19 08:08 06/14/19 08:17 06/14/19 08:08 Period Temp Pulse Resp BP Sys/Melgoza Pulse Ox Last 24 Hr 98.1 F-99.4 F 76-90 16-24 117-137/68-83 95-100 Intake and Output 06/13/19 06/14/19 06/14/19 21:59 05:59 13:59 Intake Total 660 Output Total 1300 775 Balance -640 -775 Weight 180 lb 9.6 oz Intake & Output: Intake & Output 06/13/19 06/14/19 06/14/19 21:59 05:59 13:59 Intake Total 660 Output Total 1300 775 Balance -640 775 Weight 180 lb 9.6 oz Intake: Oral 660 Output: Void Amount 1300 775 Other: Meal Lunch Percent of Meal Consumed 100% Urine Appearance Clear Clear Urine Color Pale Bright Yellow Bright Yellow Urine Odor Normal Normal General appearance: no acute distress Exam: Tachycardia and telemetry Alert oriented Nonlabored breathing No lymphedema No pallor Medical - PN: Obj Da - Labs CBC & Chem 7: 06/14/19 08:30 06/14/19 05:10 Labs: Abnormal Lab Results 06/14/19 06/14/19 06/14/19 08:30 05:10 05:10 WBC 2.2 L 2.0 L RBC 3.23 L 3.17 L Hgb 10.2 L 10.2 L Hct 29.4 L 30.1 L Plt Count 138 L MPV Gran % 28.0 L [place] % (Auto) 21.2 H Eos % (Auto) 7.4 H Gran # 0.57 L Lymph # (Auto) 0.86 L Sodium 132 L Chloride Carbon Dioxide 19 L BUN 73 H Creatinine 5.0 H Glucose 117 H Phosphorus 5.1 H Magnesium Total Protein 5.4 L Albumin 3.0 L Urine Protein Urine Glucose (UA) Urine Occult Blood 06/13/19 06/13/19 06/13/19 10:40 05:33 05:33 WBC 2.2 L RBC 3.27 L Hgb 10.3 L Hct 29.5 L Plt Count 138 L MPV 10.6 H Gran % [place] % (Auto) 18.2 H Eos % (Auto) Gran # 1.24 L Lymph # (Auto) 0.45 L Sodium 128 L Chloride 93 L Carbon Dioxide 20 L BUN 83 H Creatinine 5.4 H* Glucose Phosphorus 5.4 H Magnesium 1.4 L Total Protein 5.6 L Albumin Urine Protein 100 A Urine Glucose (UA) 50 A Urine Occult Blood 0.03 A 06/12/19 06/12/19 20:46 20:46 WBC 3.8 L RBC 3.70 L Hgb 11.9 L Hct 33.7 L Plt Count MPV 10.6 H Gran % [place] % (Auto) Eos % (Auto) Gran # Lymph # (Auto) Sodium 127 L Chloride 90 L Carbon Dioxide BUN 84 H Creatinine 5.3 H* Glucose 113 H Phosphorus Magnesium Total Protein Albumin Urine Protein Urine Glucose (UA) Urine Occult Blood Meds: Medications Acetaminophen (Tylenol) 1,000 mg PO Q6HP PRN; Protocol PRN Reason: Per Pain Protocol/Fever > 101 Last Admin: 06/13/19 06:44 Dose: 1,000 mg Documented by: Fentanyl (Sublimaze) 12.5 mcg IV Q2HP PRN; Protocol PRN Reason: Per Pain Protocol Acetaminophen (Ofirmev) 1,000 mg in 100 mls @ 200 mls/hr IV Q6HP PRN; Protocol PRN Reason: PAIN/FEVER > 101 Magnesium Oxide (Magnesium Oxide) 400 mg PO DAILY [facility] Last Admin: 06/14/19 09:00 Dose: 400 mg Documented by: Melatonin (Melatonin 3mg Tablet) 3 mg PO ONCE PRN PRN Reason: Insomnia Ondansetron HCl (Zofran Odt) 4 mg SL Q4-6HP PRN PRN Reason: Nausea Ondansetron HCl (Zofran) 4 mg IV Q4-6HP PRN PRN Reason: Nausea And Vomiting Sodium Chloride (Saline Flush) 10 ml IV Q8 [facility] Last Admin: 06/14/19 05:47 Dose: 10 ml Documented by: Medical - PN: A/P - Time Spent With Patient Total time spent is greater than 50% in coordination of care (as documented) at patient's floor/unit and/or counseling patient: 25 - 35 minutes (1) Peritoneal dialysis-associated peritonitis Status: Acute Assessment and plan: * Fever of unclear origin-resolved. Pancultures negative. ID on board. * Leukopenia with ANC 560. Peripheral smear. Continue monitoring. * Resolved streptococcal peritonitis -status post 2 weeks antibiotic coverage. Repeat peritoneal fluid white count 95 with 2% neutrophils * ESRD management per nephrology-on peritoneal dialysis * Hyperlipidemia continue statin * History of hypertension continue BERNIE inhibitor * History of gout continue allopurinol * Full code * Prophylaxis heparin Plan * Continue PD per nephrology * Leukopenia work-up * Continue prior medical condition management as above * Nutrition support * Discharge planning Current Visit: Yes
[2019-06-14] MEDS: 0.9 % SODIUM CHLORIDE 1,000 ML IV SCH ×2 (10:58→21:19)
[2019-06-14 13:34] LABS: Nucleated Cel,Peritoneal Fluid 11.67 /cumm; RBC,Peritoneal Fluid < 50000 /cumm
[2019-06-14 13:35] LABS: Basophils,Peritoneal Fluid 3 %; Eosinophils,Peritoneal Fluid 3 %; Macrophages,Peritoneal Fluid 10 %; Monocyte,Peritoneal Fluid 50 %; Neutrophils,Peritoneal Fluid 1 %
[2019-06-14] MEDS ORDERED: SIMVASTATIN 10 MG TABLET PO SCH (21:00)
--- NOTE | 2019-06-14 22:35 | Infectious Disease Prog Note ---
Subjective Patient information: Note initiated : 06/14/19 at 10:34 pm Service Date, if different from initiated Date: [] Patient: Jazmine Martinez 34 y/o M admitted on 06/13/19 for fever. Chief Complaint: [] Interval history: Pt doing well. denies any symptoms. discussed plan to continue without any antibiotics as he doesnot have fever, other sympt concerning for infection. Pt voices understanding Objective Objective Narrative: ao x 3, in nad no thrush chest cta s1 s2 normal no rash bs ++, nttd - Vital Signs Vital signs: Vital Signs Temp Pulse Pulse Resp BP BP Pulse Ox 06/14/19 21:10 36.5 C 126/85 06/14/19 18:56 36.5 C 77 18 126/85 100 06/14/19 16:00 37.2 C 17 133/79 99 06/14/19 14:00 18 98 06/14/19 12:00 36.9 C 18 128/74 98 06/14/19 08:17 36.7 C 131/76 06/14/19 08:08 36.7 C 18 131/76 99 06/14/19 08:00 18 99 06/14/19 05:15 36.7 C 18 125/73 98 06/14/19 02:00 18 95 06/14/19 00:06 123/74 06/14/19 00:00 37.4 C H 90 18 123/74 95 Intake and Output 06/14/19 06/14/19 06/15/19 13:59 21:59 05:59 Intake Total 720 3040 Output Total 800 1230 Balance -80 1810 Intake: IV 1000 Sodium Chloride 0.9% 1,000 ml @ 1000 100 mls/hr IV .Q10H [facility] Rx#: [id number] Oral 720 2040 Output: Void Amount 800 1230 Other: Meal Breakfast Nourishment/Supplement Percent of Meal Consumed 100% 100% Feeding Ability Assist with Tray Set Up Urine Appearance Clear Clear Urine Color Bright Yellow Bright Yellow Urine Odor Normal Normal Stool Color Brown Stool Consistency Normal for Patient Soft Weight 81.919 kg 81.647 kg Patient Weight 06/15/19 05:59 Weight 81.647 kg Intake & Output: Intake & Output 06/14/19 06/14/19 06/15/19 13:59 21:59 05:59 Intake Total 720 3040 Output Total 800 1230 Balance -80 1810 Weight 81.919 kg 81.647 kg Intake: IV 1000 Sodium Chloride 0.9% 1,000 ml @ 1000 100 mls/hr IV .Q10H [facility] Rx#: [id number] Oral 720 2040 Output: Void Amount 800 1230 Other: Meal Breakfast Nourishment/Supplement Percent of Meal Consumed 100% 100% Feeding Ability Assist with Tray Set Up Urine Appearance Clear Clear Urine Color Bright Yellow Bright Yellow Urine Odor Normal Normal Stool Color Brown Stool Consistency Normal for Patient Soft - Lab 06/15/19 05:53 06/15/19 05:53 Most recent lab results Calcium 8.8 mg/dl (8.6-10.4) 06/14/19 05:10 Phosphorus 5.1 mg/dL (2.7-4.5) H 06/14/19 05:10 Magnesium 2.2 mg/dL (1.6-2.5) 06/14/19 05:10 Microbiology 06/12/19 21:08 Peritoneal Fluid Fungal Smear - Final 06/12/19 21:25 Peritoneal Dialysis Fluid Gram Stain - Final 06/12/19 21:25 Peritoneal Dialysis Fluid Body Fluid Culture - Final 06/13/19 10:40 Urine - Clean Void Mid-Stream Urine Culture - Preliminary 06/12/19 21:00 Blood Blood Culture - Preliminary 06/12/19 21:20 Blood Blood Culture - Preliminary 06/13/19 00:25 Nose MRSA (PCR) - Final Medications Active Medications: Acetaminophen (Tylenol) 1,000 mg PO Q6HP PRN; Protocol PRN Reason: Per Pain Protocol/Fever > 101 Last Admin: 06/13/19 06:44 Dose: 1,000 mg Documented by: [email or web address] Allopurinol (Zylopriim) 300 mg PO DAILY [facility] Fentanyl (Sublimaze) 12.5 mcg IV Q2HP PRN; Protocol PRN Reason: Per Pain Protocol Acetaminophen (Ofirmev) 1,000 mg in 100 mls @ 200 mls/hr IV Q6HP PRN; Protocol PRN Reason: PAIN/FEVER > 101 Sodium Chloride (Sodium Chloride 0.9%) 1,000 mls @ 100 mls/hr IV .Q10H [facility] Last Infusion: 06/14/19 21:34 Dose: 0 mls/hr Documented by: Admin: 02/12/20 21:19 Dose: Not Given Documented by: DULCE Non-Admin Reason: only 1 liter Admin: 06/14/19 10:58 Dose: 100 mls/hr Documented by: JARRETT Lisinopril (Zestril) 20 mg PO DAILY [facility] Magnesium Oxide (Magnesium Oxide) 400 mg PO DAILY [facility] Last Admin: 06/14/19 09:00 Dose: 400 mg Documented by: JARRETT Melatonin (Melatonin 3mg Tablet) 3 mg PO ONCE PRN PRN Reason: Insomnia Ondansetron HCl (Zofran Odt) 4 mg SL Q4-6HP PRN PRN Reason: Nausea Ondansetron HCl (Zofran) 4 mg IV Q4-6HP PRN PRN Reason: Nausea And Vomiting Simvastatin (Zocor) 10 mg PO HS [facility] Last Admin: 06/14/19 21:19 Dose: 10 mg Documented by: DULCE Sodium Chloride (Saline Flush) 10 ml IV Q8 [facility] Last Admin: 06/14/19 21:13 Dose: Not Given Documented by: DULCE Non-Admin Reason: Continuous IV Admin: 06/14/19 13:18 Dose: Not Given Documented by: JARRETT Non-Admin Reason: Continuous IV Admin: 06/14/19 05:47 Dose: 10 ml Documented by: Admin: 06/13/19 19:59 Dose: 10 ml Documented by: Admin: 06/13/19 17:13 Dose: 10 ml Documented by: [email or web address] Admin: 06/13/19 05:35 Dose: 10 ml Documented by: [email or web address] Vitamin D (Vitamin D3) 2,000 unit PO DAILY [facility] Assessment and Plan - Narrative A/P Narrative: A: 1. Fever: 2 isolated episodes (yesterday night and on 06/09/19), afebrile at time of visit - s/p a dose of IV Cipro and Fluconazole in ED - no focal signs or symptoms to suggest infection - Blood Cx from 06/12 NGTD. Peritoneal fluid gram stain neg, Cx NGTD. UA with neg nitrites and neg esterase - MRSA nasal screen neg - CT abd/pelvis 06/12/2019 with normal lying PD cath, normal PD exit tract. Also showed Avascular necrosis of the right femoral head, a small amount of free intraperitoneal fluid and there are several intraperitoneal gas bubbles. No intra-abdominal abscess, mild splenomegaly 2. Resolved Streptococcal CAPD peritonitis: no clinical symptoms or signs of peritonitis. Previous clinical features resolved - Peritoneal WBC at initial presentation on 05/29 was [id number] with 95% PMNs intraperitoneal Vanc every [address] Wick x 2 weeks -------------> WBC yesterday at 95 with 2% PMNs - CT abd/pelvis with no concerns for residual PD infection 3. 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 Deficiency has been link ed to developement of Autoimmune ds such as RA, SLE, and deposition of immune complexes in various parts of body leading to inflammatory response. No specific infectious diseases have been linked with C1q deficiency. 4. Pancytopenia: neutropenia with mild anemia and thrombocytopneia. Anemia and low Plt are chronic. Neutropenia seem sec to drug-induced (receipt of recent antibiotics) or dilutional. PBS didnot show any blasts, or myelodysplastic cells. In absence of infection sysmptoms, lymphadenopathy; infectious causes seem less likley Recommendations: - As pt has no signs and symptoms of infection, is currently afebrile, past 2 epsidoes were isolated and by 3 days; he could be watched off antibiotics unless he spikes fever again. Infection would lead to persistent fevers. - In case he spikes a fever again (>38.1C): start IV Cefepime 2 gm q48 hrs. If there is hypotension, IV vanc (loading dose of 1 gm IV with pharmacy assisted monitoring) can also be added. LP with CSF analysis for cell count with differential, Glu, protein, opening pressure, gram stain & Culture/sensitivity. - If pt is afebrile by tomorrow, he could be discharged with PCP and nephro f/u with monitoring of CBC with diff. If neutrophils drop pt might [employer] ref erral and/or bone marrow biopsy. If he has fevers again as OP, please refer to ID clinic will follow Jose Romano MD Infectious diseases
[2019-06-15] MEDS: 0.9 % SODIUM CHLORIDE 10 ML SYRINGE IV SCH (05:12)
[2019-06-15] MEDS: MAGNESIUM OXIDE 400 MG TABLET PO SCH (08:35)
[2019-06-15] MEDS ORDERED: LISINOPRIL 20 MG TABLET PO SCH (09:00)
[2019-06-15] MEDS ORDERED: ALLOPURINOL 300 MG TABLET PO SCH (09:00)
[2019-06-15] MEDS ORDERED: VITAMIN D3 1,000 UNIT TABLET PO SCH (09:00)
[2019-06-15] MEDS ORDERED: MAGNESIUM OXIDE 400 MG PO SCH (09:00)
[2019-06-15 09:05] LABS: ALT/SGPT 22 U/l (0-40); AST/SGOT 18 U/l (0-37); Albumin 3.2 gm/dL (3.2-5.2); Albumin/Globulin Ratio 1.7 (1.0-2.3); Alkaline Phosphatase 45 U/L (39-117); Bilirubin,Direct < 0.2 mg/dL (0.0-0.3); Bilirubin,Total < 0.2 mg/dL (0.0-1.0); Blood Urea Nitrogen 63 mg/dl (6-20); Carbon Dioxide 24 mmol/L (22-30); Chloride 104 mmol/L (96-108); Globulin 1.9 gm/dL (2.2-3.7); Glomerular Filtration Rate 17; Glucose 98 mg/dL (70-105); Lactate Dehydrogenase 176 U/L (94-250); Phosphorous 6.2 mg/dL (2.7-4.5); Triglycerides 128 mg/dl (<150); Uric Acid 4.3 mg/dL (2.5-8.0)
[2019-06-15 09:06] LABS: Basophils # (Auto) 0 K/mcL (0.00-0.30); Basophils % (Auto) 0 % (0.0-2.0); Eosinophils # (Auto) 0.15 K/mcL (0.00-0.70); Eosinophils % (Auto) 5.7 % (0.0-7.0); Granulocytes % (Auto) 26.6 % (38.0-78.0); Hematocrit 28.1 % (40.1-51.0); Hemoglobin 9.8 g/dL (13.7-17.5); Lymphocytes # (Auto) 1.32 K/mcL (1.50-4.80); Lymphocytes % (Auto) 50.2 % (15.5-49.0); Mean Cell Volume 90.6 fL (80.0-100.0); Mean Corpuscular HGB Conc 34.9 g/dL (31.0-36.0); Mean Platelet Volume 10.5 fL (7.4-10.4); Monocytes # (Auto) 0.46 K/mcL (0.10-0.90); Monocytes % (Auto) 17.5 % (1.0-12.0); Platelet Count 158 K/mcL (140-440); Red Cell Distribution Width 12.6 % (11.5-14.5); WBC 2.6 K/mcL (4.50-11.00)
--- NOTE | 2019-06-15 09:53 | Nephrology Progress Note ---
Subjective Patient information: Note initiated : 06/15/19 at 9:51 am Service Date, if different from initiated Date: [] Patient: Jazmine Martinez 34 y/o M admitted on 06/13/19 for fever. Chief Complaint: []Feeling a lot better. HR still high at times when he walks around. Objective - Vital Signs Vital signs: Vital Signs Temp Pulse Resp BP BP Pulse Ox 06/15/19 09:04 97.9 F 115/78 06/15/19 07:36 97.9 F 20 115/78 100 06/15/19 05:40 97.8 F 72 18 111/70 100 06/15/19 02:00 18 100 06/14/19 21:10 97.7 F 126/85 06/14/19 18:56 97.7 F 77 18 126/85 100 06/14/19 16:00 98.9 F 17 133/79 99 06/14/19 14:00 18 98 06/14/19 12:00 98.4 F 18 128/74 98 Intake and Output 06/14/19 06/15/19 06/15/19 21:59 05:59 13:59 Intake Total 3040 400 Output Total 1230 Balance 1810 400 Intake: IV 1000 Sodium Chloride 0.9% 1,000 ml @ 1000 100 mls/hr IV .Q10H [facility] Rx#: [id number] Oral 2040 400 Output: Void Amount 1230 Other: Meal Nourishment/Supplement Percent of Meal Consumed 100% Feeding Ability Assist with Tray Set Up Urine Appearance Clear Clear Urine Color Bright Yellow Bright Yellow Urine Odor Normal Normal Stool Color Brown Brown Brown Stool Consistency Normal for Patient Normal for Patient Normal for Patient Soft Soft Soft # Voids 1 3 Weight 180 lb Intake & Output: Intake & Output 06/14/19 06/15/19 06/15/19 21:59 05:59 13:59 Intake Total 3040 400 Output Total 1230 Balance 1810 400 Weight 180 lb Intake: IV 1000 Sodium Chloride 0.9% 1,000 ml @ 1000 100 mls/hr IV .Q10H [facility] Rx#: [id number] Oral 2040 400 Output: Void Amount 1230 Other: Meal Nourishment/Supplement Percent of Meal Consumed 100% Feeding Ability Assist with Tray Set Up Urine Appearance Clear Clear Urine Color Bright Yellow Bright Yellow Urine Odor Normal Normal Stool Color Brown Brown Brown Stool Consistency Normal for Patient Normal for Patient Normal for Patient Soft Soft Soft # Voids 1 3 - General Appearance General appearance: well-developed, well-nourished EENT: ATNC Neck: no JVD Respiratory: no kyphosis Cardiology: no murmurs Gastrointestinal: normoactive bowel sounds Neurologic: no focal deficit Musculoskeletal: no deformities - Lab 06/15/19 05:53 06/15/19 05:53 Most recent lab results Calcium 9.0 mg/dl (8.6-10.4) 06/15/19 05:53 Phosphorus 6.2 mg/dL (2.7-4.5) H* 06/15/19 05:53 Magnesium 1.8 mg/dL (1.6-2.5) 06/15/19 05:53 Assessment and Plan (1) Peritoneal dialysis-associated peritonitis Status: Acute Comment: Presented with peritonitis. His repeat cell count did not show any evidence of peritonitis. All antibiotics on hold. ID is seeing him. Will go back home on the cycler as before. 3 exchanges of 2 liters at night. Leukopenia. Being worked up. It is better today. ESRD will have him do PD tonight at home. Qualifiers: Encounter type: initial encounter Qualified Code(s): T85.71XA - Infection and inflammatory reaction due to peritoneal dialysis catheter, initial encounter
--- NOTE | 2019-06-15 10:29 | Discharge Summary ---
Medical - DS: Prov Patient information: Note initiated : 06/15/19 at 10:24 am Service Date, if different from initiated Date: [] Patient: Jazmine Martinez 34 y/o M admitted on 06/13/19 for fever. Chief Complaint: [] Date of admission: 06/13/19 00:02 Discharge date: 06/15/19 Primary care physician: Omar Wick Consults: 06/13/19 03:09 Consult to Infectious Disease [CONS] Routine Comment: Consulting Provider: Jose Romano Reason For Exam: Physician to Consult ID Consult Information: -06/13 at 0002 - TBD - Dr. Gleason - non known history - Vancomycin dwelling with his peritoneal dialysis fluid at home; currently on Cipro IV and Diflucan PO - peripheral IV x2 - peritonitis resistant to vancomycin Consult date: 06/13/19 Reason for Consult: see above Consult to Physician [CONS] Routine Comment: Consulting Provider: Omar Wick Reason For Exam: Physician to Consult 06/13/19 12:44 Consult to Physician [CONS] Routine Comment: Consulting Provider: Sunday Gleason Reason For Exam: Physician to Consult Medical - DS: Meds - Discharge Medications Active and Home Medications: Home Medications Allopurinol [Zyloprim] 300 mg PO DAILY 06/12/19 [History Confirmed 06/12/19 Last Taken Unknown] Cholecalciferol (Vitd3)/Vit K2 [Dosoquin Tablet] 2,000 units PO DAILY 06/12/19 [History Confirmed 06/12/19 Last Taken Unknown] Lisinopril [Zestril] 20 mg PO DAILY 06/12/19 [History Confirmed 06/12/19 Last Taken Unknown] Magnesium Oxide [Mag-Oxide Magnesium] 400 mg PO DAILY 06/12/19 [History Confirmed 06/12/19 Last Taken Unknown] Simvastatin [Zocor] 10 mg PO HS 06/12/19 [History Confirmed 06/12/19 Last Taken Unknown] Medical - DS: Hosp Hospital Course: Discharge diagnosis * Fever of unclear origin-resolved. Extensive work-up negative. Echocardiogram no evidence of valvular vegetation. Normal EF. Off antibiotics. * Leukopenia -improved ANC 750+. No fever or evidence of infection. Likely drug-induced. However if persistent will need oncology follow-up as outpatient * Resolved streptococcal peritonitis -status post 2 weeks antibiotic coverage. Repeat peritoneal fluid white count 11 * ESRD management per nephrology-on peritoneal dialysis. Patient scheduled for renal transplant early July. Blood work to be faxed to transplant center at [place] prior to discharge for further evaluation if persistent leukopenia * Hyperlipidemia continue statin * History of hypertension continue BERNIE inhibitor * History of gout continue allopurinol Brief hospital course Mr. Martinez is a 34 year old M with a known history of ESRD on peritoneal dialysis managed by Dr. Wick nephrology. Patient was recently diagnosed with dialysis related peritonitis and was started on vancomycin/ceftazidime. Over the course of few days patient's failed to improve and continued to spike fevers along with associated increasing abdominal pain. He was referred to the ER for further evaluation by nephrology.. Initial work-up included peritoneal and blood cultures. Patient was started on empiric antibiotic coverage as per nephrology including Diflucan/ciprofloxacin. Hospital service was consulted for admission. At the time evaluation patient is alert and oriented. He complains of minimal abdominal discomfort and endorses history as above. He denies headache photophobia, shaking chills, rash. 06/13-patient doing well. No overnight events. No abdominal tenderness pain, ID recommends discontinue antibiotics. Case discussed with nephrology. ID also recommends lumbar puncture if fever spike greater than 38.2 centigrade. Cultures negative so far. Peritoneal fluid white count 95 with 2% neutrophils indicating complete resolution of peritonitis. Ongoing peritoneal dialysis per nephrology. 06/14-no overnight fever. ANC 560. Work-up ongoing as per ID. Echocardiogram completed await results. Nephrology on board. Ongoing peritoneal dialysis. Patient tachycardic while ambulating to 120. No other concerns per staff. Will likely discharge in 24 hours if no further fever spikes. 06/15-improving white count and ANC around 750. No overnight fever. Tachycardia improved. No signs of infection. Peritonitis resolved. Discharging advised to follow-up with nephrology after repeat CBC BMP in 3 days. ID recommends against antibiotics. Lab results to be faxed to transplant center at [place]. Discharge instructions as below Discharge diagnosis: . - Time Spent with Patient Total time spent providing and/or coordinating discharge services: Greater than 30 minutes Medical - DS: Exam - Constitutional Vitals: Vital Signs Temp Pulse Resp BP BP Pulse Ox 06/15/19 09:04 97.9 F 115/78 06/15/19 07:36 97.9 F 20 115/78 100 06/15/19 05:40 97.8 F 72 18 111/70 100 06/15/19 02:00 18 100 06/14/19 21:10 97.7 F 126/85 06/14/19 18:56 97.7 F 77 18 126/85 100 06/14/19 16:00 98.9 F 17 133/79 99 06/14/19 14:00 18 98 06/14/19 12:00 98.4 F 18 128/74 98 Intake and Output 06/14/19 06/15/19 06/15/19 21:59 05:59 13:59 Intake Total 3040 400 960 Output Total 1230 Balance 1810 400 960 Intake: IV 1000 Sodium Chloride 0.9% 1,000 ml @ 1000 100 mls/hr IV .Q10H [facility] Rx#: [id number] Oral 2040 400 960 Output: Void Amount 1230 Other: Meal Nourishment/Supplement Breakfast Percent of Meal Consumed 100% 100% Feeding Ability Assist with Tray Set Up Independent Urine Appearance Clear Clear Urine Color Bright Yellow Bright Yellow Urine Odor Normal Normal Stool Color Brown Brown Brown Stool Consistency Normal for Patient Normal for Patient Normal for Patient Soft Soft Soft # Voids 1 3 Weight 180 lb Medical - DS: Data Labs on day of discharge: Labs from last 24 hours 06/15/19 06/15/19 06/15/19 09:21 05:53 05:53 WBC 2.6 L RBC 3.10 L Hgb 9.8 L Hct 28.1 L MCV 90.6 MCH 31.6 MCHC 34.9 RDW 12.6 Plt Count 158 MPV 10.5 H Gran % 26.6 L Lymph % (Auto) 50.2 H [place] % (Auto) 17.5 H Eos % (Auto) 5.7 Baso % (Auto) 0 Gran # 0.70 L Lymph # (Auto) 1.32 L [place] # (Auto) 0.46 Eos # (Auto) 0.15 Baso # (Auto) 0 Smear Path Review Sodium 140 Potassium 4.3 Chloride 104 Carbon Dioxide 24 Anion Gap 12.0 BUN 63 H Creatinine 4.3 H GFR Calculation 17 Glucose 98 Uric Acid 4.3 Calcium 9.0 Phosphorus 6.2 H* Magnesium 1.8 Total Bilirubin < 0.2 Direct Bilirubin < 0.2 GGT 14 AST 18 ALT 22 Alkaline Phosphatase 45 Lactate Dehydrogenase 176 Total Protein 5.1 L Albumin 3.2 Globulin 1.9 L Albumin/Globulin Ratio 1.7 Triglycerides 128 Peritoneal Source Pending Peritoneal Color Pending Peritoneal Appearance Pending Peritoneal RBC Pending Periton Tot Cells Ct Pending Periton Nuc Cells Pending Periton Neutrophils Not Reportable Periton Lymphocytes Not Reportable Peritoneal Monocytes Not Reportable Peritoneal Eosinophils Not Reportable Peritoneal Basophils Not Reportable Periton Mesothelial Not Reportable Periton Macrophages Not Reportable Peritoneal Plasma Cell Not Reportable Peritoneal Other Cells Not Reportable Peritoneal Diff Commnt Not Reportable 06/14/19 06/14/19 08:30 08:28 WBC RBC Hgb Hct MCV MCH MCHC RDW Plt Count MPV Gran % Lymph % (Auto) [place] % (Auto) Eos % (Auto) Baso % (Auto) Gran # Lymph # (Auto) [place] # (Auto) Eos # (Auto) Baso # (Auto) Smear Path Review Sodium Potassium Chloride Carbon Dioxide Anion Gap BUN Creatinine GFR Calculation Glucose Uric Acid Calcium Phosphorus Magnesium Total Bilirubin Direct Bilirubin GGT AST ALT Alkaline Phosphatase Lactate Dehydrogenase Total Protein Albumin Globulin Albumin/Globulin Ratio Triglycerides Peritoneal Source Peritoneal Peritoneal Color Colorless Peritoneal Appearance Clear Peritoneal RBC < [address] 100 Periton Nuc Cells 11.67 Periton Neutrophils 1 Periton Lymphocytes 33 Peritoneal Monocytes 50 Peritoneal Eosinophils 3 Peritoneal Basophils 3 Periton Mesothelial Periton Macrophages 10 Peritoneal Plasma Cell Peritoneal Other Cells Peritoneal Diff Commnt Preliminary micro results at discharge 06/12/19 21:00 Blood Culture - Preliminary Blood 06/12/19 21:20 Blood Culture - Preliminary Blood Medical - DS: A/P - Patient/Caregiver Discharge Instructions Activity: increase activity as tolerated Diet: Renal Additional Instructions: CBC BMP in 3 days, please take the signed orders follow-up nephrology on Wednesday Dr. Wick Return to ER if fever chills abdominal pain noted If persistent leukopenia will require hematology follow-up as outpatient Other Amb Orders: Basic Metabolic Panel Time Frame: 3 Days, Location: None Selected Complete Blood Count Time Frame: 3 Days, Location: None Selected - Problem Maintenance (1) Peritoneal dialysis-associated peritonitis Status: Acute Comment: Presented with peritonitis. His repeat cell count did not show any evidence of peritonitis. All antibiotics on hold. ID is seeing him. Will go back home on the cycler as before. 3 exchanges of 2 liters at night. Leukopenia. Being worked up. It is better today. ESRD will have him do PD tonight at home. Qualifiers: Encounter type: initial encounter Qualified Code(s): T85.71XA - Infection and inflammatory reaction due to peritoneal dialysis catheter, initial encounter - Follow up Plan Follow up with: Omar Wick MD [Primary Care Provider] - (Continue with your current schedule) No,PCP [Referring] - Disposition: Home, Self-Care Care Plan Goals: This discharge packet is provided to you to help keep you informed about your care. We want to ensure you get everything you need when you go home. You will also be receiving a call from us in a few days to follow up with you and see how you are doing since your discharge. This gives us a chance to listen to any concerns you maybe experiencing since you were discharged or any additional needs you may have, as well as providing us feedback on your care experience. We strive to always provide excellent care and thank you for your feedback and for choosing [facility]. Prognosis: Fair Rehab Potential: Fair I certify that the patient requires SNF services: No Overall status at discharge: patient is progressing back to baseline
[2019-06-15 14:35] LABS: Nucleated Cel,Peritoneal Fluid 21 /cumm; RBC,Peritoneal Fluid < 50000 /cumm
[2019-06-15 15:11] LABS: Monocyte,Peritoneal Fluid 74 %; Neutrophils,Peritoneal Fluid 1 %
== END 2019-06-15 10:53 | disposition home or self-care (01) | DRG 919 ==
LOC: ED 19:17 → ICU 06-13 00:02
PROVIDERS: ADMIT Internal Medicine; ATTEND Internal Medicine